=== PATIENT | female | born 1995 | race African-American/Black ===

== ENCOUNTER 2018-06-03 19:20 | Observation (INO) | payer BC ==
--- NOTE | 2018-06-03 20:44 | PDOC ---
History of Present Illness - General Chief Complaint: Pain Stated Complaint: ABD PAIN Time Seen by Provider: 06/03/18 20:10 History Source: Patient Exam Limitations: No Limitations - History of Present Illness Initial Comments: 06/03/18 20:34 Patient is a 22 year old female with no past medical problems c/o lower abd pain x 3 days. Patient states that the pain is intermittent, crampy type lasting for minutes at a time in the lower abd 09/22. She had been taking aleve for the pain with no relief. Last dose of Aleve was 8am and tylenol ES x 2 at 3 pm. LMP 05/14/18 but notice she started spotting again this morning. She does not usually have menstrual camping and usually period are regular. did not get a period in April which was due 05/02/18. No abdominal surgeries. No food contact. States had not eaten for 2 days, has small amount of food today but was nauseous. Denies fever, chills, dysuria PMD: Dr. Krueger PMHX: as above PSOCHX: neg etoh, cig, drug ALL: NKDA GENERAL/CONSTITUTIONAL: No fever or chills. No weakness. No weight change. HEAD, EYES, EARS, NOSE AND THROAT: No change in vision. No ear pain or discharge. No sore throat. CARDIOVASCULAR: No chest pain or shortness of breath. RESPIRATORY: No cough, wheezing, or hemoptysis. GASTROINTESTINAL: (+) nausea, vomiting, (-) diarrhea or constipation. No rectal bleeding. GENITOURINARY: No dysuria, frequency, or change in urination. MUSCULOSKELETAL: No joint or muscle swelling or pain. No neck or back pain. SKIN AND BREASTS: No rash or easy bruising. NEUROLOGIC: No headache, vertigo, loss of consciousness, or loss of sensation. PSYCHIATRIC: No depression or anxiety. ENDOCRINE: No increased thirst. No abnormal weight change. HEMATOLOGIC/LYMPHATIC: No anemia, easy bleeding, or history of blood clots. ALLERGIC/IMMUNOLOGIC: No hives or skin allergy. No latex allergy. GENERAL: The patient is awake, alert, and fully oriented, in moderate distress. HEAD: Normal with no signs of trauma. EYES: Pupils equal, round and reactive to light, extraocular movements intact, sclera anicteric, conjunctiva clear. ENT: Ears normal, nares patent, oropharynx clear without exudates. Moist mucous membranes. NECK: Normal range of motion, supple without lymphadenopathy, JVD, or masses. LUNGS: Breath sounds equal, clear to auscultation bilaterally. No wheezes, and no crackles. HEART: Regular rate and rhythm, normal S1 and S2 without murmur, rub. ABDOMEN: Soft, (+) tenderness in the RLQ > LLQ, normoactive bowel sounds. No guarding, no rebound. No masses. EXTREMITIES: Normal range of motion, no edema. No clubbing or cyanosis. No cords, erythema, or tenderness. NEUROLOGICAL: Cranial nerves II through XII grossly intact. Normal speech, normal gait. PSYCH: Normal mood, normal affect. SKIN: Warm, Dry, normal turgor, no rashes or lesions noted. Past History - Past Medical History Allergies/Adverse Reactions: Allergies Allergy/AdvReac Type Severity Reaction Status Date / Time No Known Allergies Allergy Verified 06/03/18 19:25 Home Medications: Ambulatory Orders Methylergonovine Maleate [Methergine -] 0.2 mg PO Q6H #3 tablet 10/18/15 COPD: No - Reproductive History (#): 3 Para: 2 Cervical CA: No Ectopic : No Polycystic Ovaries: No - Immunization History Immunization Up to Date: No - Suicide/Smoking/Psychosocial Hx Smoking History: Never smoked Have you smoked in the past 12 months: No Hx Alcohol Use: No Drug/Substance Use Hx: No Substance Use Type: None *Physical Exam - Vital Signs Last Vital Signs Temp Pulse Resp BP Pulse Ox 98.5 F 72 18 133/81 100 06/03/18 19:25 06/03/18 19:25 06/03/18 19:25 06/03/18 19:25 06/03/18 19:25 ED Treatment Course - LABORATORY CBC & Chemistry Diagram: 06/03/18 21:20 06/03/18 21:20 Medical Decision Making - Medical Decision Making 06/03/18 20:34 Patient is a 22 year old female with no past medical problems c/o lower abd pain x 3 days. Patient states that the pain is intermittent, crampy type lasting for minutes at a time in the lower abd 8/10. She had been taking aleve for the pain with no relief. Last dose of Aleve was 8am and tylenol ES x 2 at 3 pm. LMP 4/19 but notice she started spotting again this morning. She does not usually have menstrual camping and usually period are regular. States did not get a period in April which was due 05/02/18. No abdominal surgeries. DDX: Appendicitis, ruptured ovarian cysts, ovarian torsion Labs Pain meds, antinausea, IV fluids CT abdomen and pelvis with IV contrast, ultrasound rule out ovarian torsion Reassess Patient is vomiting in the emergency room. States that the right lower quadrant was very tender and made her nauseous and vomit. Patient Full Name: GARRETT GONZALES Patient Accession No: [id number] Patient : 1995 Reason for Exam: rlq pain,r/o torsion Referring Physician: Patient Name: CHRISTIAN TUCKER THIS IS A PRELIMINARY REPORT FROM [facility] ATTENDANT DATE OF SERVICE: 2018-06-03 22:45:20 IMAGES: 60 EXAM: TRANSVAGINAL ULTRASOUND US . Grayscale, color flow Doppler imaging provided. HISTORY: 22-year-old female with right lower quadrant pain. Evaluate for torsion COMPARISON: None. Findings: Cervix normal in appearance. Uterus measures 10.0 x 5.8 x 6.6 cm. Endometrial stripe thickness 6 mm. Right ovary measures 3.7 x 1.7 x 2.7 cm. Color flow and Doppler arterial/venous segment of the right ovary demonstrated. The left ovary measures 4.6 x 2.4 x 2.8 cm. Irregular cyst left ovary measuring 2.8 x 1.4 x 2.5 cm. Color flow and Doppler arterial/venous signal to the left ovary demonstrated. No free fluid noted within the cul-de-sac in the pelvis. Impression: 1. No evidence of ovarian torsion. 2. Cyst left ovary measuring 2.8 x 1.4 x 2.5 cm. Recommendation: Suggest follow-up pelvic sonography after 2-3 menstrual cycles. THIS DOCUMENT HAS BEEN ELECTRONICALLY SIGNED Rico Charles MD 06/03/2018 23:38 HTAIS Figueroa Please call [facility] [employer] Re[employer] Equipment Operator [phone]) with questions. INTERPRETING RADIOLOGIST: Patient Full Name: GARRETT GONZALES Patient Accession No: [id number] Patient : 1995 Reason for Exam: R ABD PAIN Referring Physician: CHRISTIAN TUCKER This finding was verbally communicated to Pippa Santos MD on MonJune 04 2018 00:08:10 EDT. One or more of the following dose reduction techniques were used: automated exposure control, adjustment of the mA and/or kV according to patient size, use of iterative reconstructive technique. THIS DOCUMENT HAS BEEN ELECTRONICALLY SIGNED Rico Charles MD 06/04/2018 00:15 EST M.D. Please call [facility] [employer] Equipment Operator [phone] with questions. INTERPRETING RADIOLOGIST: Rico Charles MD Electronically Signed: Jun 04, 2018 12:17AM EDT Patient Full Name: GARRETT GONZALES Patient Accession No: [id number] Patient : 1995 Reason for Exam: R ABD PAIN Referring Physician: Patient Name: CHRISTIAN TUCKER THIS IS A PRELIMINARY REPORT FROM [facility] ATTEND[facility] DATE OF SERVICE: 2018-06-03 23:24:23 IMAGES: 444 EXAM: ABDOMEN \T\ PELVIS CT WITH CONTR History: 22-year-old female with a right-sided abdominal pain. Comparison: None Procedure: CT scan abdomen and pelvis, dated June 03, 2018 . Axial images obtained followed by coronal and sagittal reconstructions. Intravenous contrast utilized, 100 mL . Findings: The liver, spleen, pancreas, adrenal glands and kidneys unremarkable. Gallbladder gallbladder fossa normal in appearance. No ureteral or bladder abnormalities noted. Rectum and perirectal space unremarkable. No large or small bowel inflammatory changes evident. The terminal ileum was normal in appearance. Proximal appendix having a transverse dimension 9.5 mm with thickening of the mucosa suggested. The appendiceal tip is unremarkable. Minimal if any periappendiceal stranding evident. There is no evidence of an appendicolith. No free intraperitoneal air or fluid identified. The abdominal aorta/branch vessel/IVC normal configuration. Suspect a 2.5 cm cyst left ovary. There is a fullness to the right ovary. Uterus is anteverted in position. There is a fullness to the lower uterine segment/cervix. Question fluid within the endocervical canal. Impression: 1. Proximal appendix having a transverse dimension 9.5 mm with thickening of the mucosa suggested. Minimal if any periappendiceal stranding identified. No extraluminal air or abscess formation identified. Findings may relate to early appendicitis. Clinical correlation advised. Recommend repeat imaging if symptoms progress. 2. Suspect 2.5 cm cyst left ovary. Slight fullness right ovary. Question fluid within the endocervical canal. Correlate with physical examination of patient's menstrual cycle. If concern with the pathology at the level of the pelvis, recommend pelvic sonography in follow-up. One or more of the following dose reduction techniques were used: automated exposure control, adjustment of the mA and/or kV according to patient size, use of iterative reconstructive technique. THIS DOCUMENT HAS BEEN ELECTRONICALLY SIGNED Rico Charles MD 06/04/2018 00:01 THAIS Lopez. Please call Imaging [employer] Re[employer] Equipment Operator [phone] with questions. INTERPRETING RADIOLOGIST: Rico Charles MD Electronically Signed: Jun 04, 2018 12:02AM EDT CT scan cannot rule out appendicitis. Patient is cell tender in the right lower quadrant. We'll admit the patient for observation pending surgical consult in the morning. *DC/Admit/Observation/Transfer Diagnosis at time of Disposition: Right lower quadrant abdominal pain - Discharge Dispostion Condition at time of disposition: Stable Decision to Admit order: Yes - Referrals Referrals: Summer Krueger MD [Primary Care Provider] - - Patient Instructions - Post Discharge Activity
[2018-06-03] MEDS ORDERED: SODIUM CHLORIDE 0.9% 500 ML INFUS.BAG IV ONE (20:47)
[2018-06-03] MEDS ORDERED: morphine CARPU-JECT 2 MG/1 ML DISP.SYRIN IVPUSH ONE (20:47)
[2018-06-03] MEDS ORDERED: ONDANSETRON 4 MG/2 ML VIAL IVPUSH ONE (20:47)
[2018-06-03 21:28] LABS: BASO % 0.4 % (0-2.0); EOS % 0.7 % (0-4.5); HEMATOCRIT 35.9 % (32.4-45.2); HEMOGLOBIN 12.4 GM/dL (10.7-15.3); LYMPH % 14.1 % (8-40); MCH 32.1 pg (25.7-33.7); MCHC 34.4 g/dl (32.0-36.0); MEAN CELL VOLUME 93.1 fl (80-96); MEAN PLT VOLUME 8.6 fl (7.5-11.1); NEUT % 73.8 % (42.8-82.8); PLATELET COUNT 250 K/MM3 (134-434); RBC 3.86 M/mm3 (3.60-5.2); RDW 12.5 % (11.6-15.6); WHITE BLOOD COUNT 7.5 K/mm3 (4.0-10.0)
[2018-06-03] MEDS ORDERED: morphine SULFATE 4 MG/ML VIAL ONE (21:42)
[2018-06-03] MEDS ORDERED: ONDANSETRON 4 MG/2 ML VIAL ONE (21:43)
[2018-06-03 21:58] LABS: ALBUMIN 3.6 g/dl (3.4-5.0); ALK PHOS 80 U/L (45-117); ANION GAP 3 MMOL/L (8-16); BILIRUBIN,TOTAL 0.3 mg/dL (0.2-1); BLOOD UREA NITROGEN 6 mg/dL (7-18); CALCIUM 9.3 mg/dL (8.5-10.1); CHLORIDE 107 mmol/L (98-107); CO2 29 mmol/L (21-32); CREATININE 0.9 mg/dL (0.55-1.3); GLUCOSE,RANDOM 99 mg/dL (74-106); POTASSIUM 3.7 mmol/L (3.5-5.1); SGOT/AST 19 U/L (15-37); SGPT/ALT 19 U/L (13-61); SODIUM 139 mmol/L (136-145); TOT PROT 7.5 g/dl (6.4-8.2)
[2018-06-03 22:31] LABS: PH,URINE 6.5 (5.0-8.0); URINE APPEARANCE CLEAR; URINE BILIRUBIN NEGATIVE (NEGATIVE); URINE COLOR YELLOW; URINE GLUCOSE (UA) NEGATIVE (NEGATIVE); URINE KETONE NEGATIVE (NEGATIVE); URINE LEUK ESTERASE NEGATIVE (NEGATIVE); URINE NITRITE NEGATIVE (NEGATIVE); URINE PROTEIN NEGATIVE (NEGATIVE); URINE UROBILINOGEN 0.2 mg/dL (0.2-1.0)
[2018-06-03 23:28] LABS: EPI CELLS 0-3 /HPF (0-5/HPF); URINE CASTS 0 /lpf (0-8); URINE RBC 0-3 /hpf (0-4); URINE WBC 0 /hpf (0-5)
--- NOTE | 2018-06-04 03:50 | HP ---
<Uli Chen - Last Filed: 06/04/18 20:27> CHIEF COMPLAINT: Abdominal Pain PCP: None HISTORY OF PRESENT ILLNESS: Pt is a 22 y/o lady with no significant past medical history who presented to [facility] c/o abdominal pain which initially commenced this past Monday (June 01 ). Pt endorses that she awoke on Monday and suddenly began to experience her abdominal pain. Pain is described as sharp, 1010 in pain severity, and radiates across her entire lower abdomen. Pt tried OTC Alleve and Tylenol which were unsuccessful in assuaging her symptoms. Pt also endorses decreased PO intake during this time as well. Pt's LMP was 05/14/2018. Pt had one episode of NBNB vomiting while in the ED. Pt denies any similar episodes in the past. PMH- None SurgHx- None Social- Denies Tobacco/Alcohol/Drugs FH- Father Arthritis. Mother DM Meds-OCPs ER course was notable for: (1) CTAP--> Proximal appendix having a transverse dimension of 9.5 cm w/ thickening of mucosa. Minimal if any stranding. Findings may suggest Early Appendicitis. (2) TVUS--> No ovarian Torsion. Cyst left ovary measuring 2.8x 1.4 x 2.5 Family History: Allergies No Known Allergies Allergy (Verified 06/03/18 19:25) HOME MEDICATIONS: Home Medications Medication Instructions Recorded Methylergonovine Maleate 0.2 mg PO Q6H #3 tablet 10/18/15 [Methergine -] REVIEW OF SYSTEMS CONSTITUTIONAL: Absent: fever, chills, diaphoresis, generalized weakness, malaise, loss of appetite, weight change HEENT: Absent: rhinorrhea, nasal congestion, throat pain, throat swelling, difficulty swallowing, mouth swelling, ear pain, eye pain, visual changes CARDIOVASCULAR: Absent: chest pain, syncope, palpitations, irregular heart rate, lightheadedness , peripheral edema RESPIRATORY: Absent: cough, shortness of breath, dyspnea with exertion, orthopnea, wheezing, stridor, hemoptysis GASTROINTESTINAL: PRESENT: abdominal pain, nausea, vomiting GENITOURINARY: Absent: dysuria, frequency, urgency, hesitancy, hematuria, flank pain, genital pain MUSCULOSKELETAL: Absent: myalgia, arthralgia, joint swelling, back pain, neck pain SKIN: Absent: rash, itching, pallor HEMATOLOGIC/IMMUNOLOGIC: Absent: easy bleeding, easy bruising, lymphadenopathy, frequent infections ENDOCRINE: Absent: unexplained weight gain, unexplained weight loss, heat intolerance, cold intolerance NEUROLOGIC: Absent: headache, focal weakness or paresthesias, dizziness, unsteady gait, seizure, mental status changes, bladder or bowel incontinence PSYCHIATRIC: Absent: anxiety, depression, suicidal or homicidal ideation, hallucinations. PHYSICAL EXAMINATION Vital Signs - 24 hr 06/03/18 06/04/18 19:25 03:06 Temperature 98.5 F 98.4 F Pulse Rate 72 Pulse Rate [ 67 Left Radial] Respiratory 18 Rate Blood Pressure 133/81 Blood Pressure 124/75 [Left Arm] O2 Sat by Pulse 100 99 Oximetry (%) GENERAL: AAOX3 NAD HEAD: Normal with no signs of trauma. EYES: EOMI Sclera Clear EARS, NOSE, THROAT: MMM NECK: Normal range of motion, supple without lymphadenopathy, JVD, or masses. LUNGS: CTAB HEART: RRR ABDOMEN: Neg Benson's, Rovsing's, or Mcburney's Signs. No guarding or rigidity. No rebound tenderness appreciated MUSCULOSKELETAL: FROM UPPER EXTREMITIES: 2+ pulses, warm, well-perfused. No cyanosis. No clubbing. No peripheral edema. LOWER EXTREMITIES: No CCE NEUROLOGICAL: Cranial nerves II-XII intact. Normal speech. Normal gait. PSYCHIATRIC: Cooperative. Good eye contact. Appropriate mood and affect. SKIN: Warm, dry, normal turgor, no rashes or lesions noted, normal capillary refill. Laboratory Results - last 24 hr 06/03/18 06/03/18 06/03/18 21:20 21:20 21:20 WBC 7.5 RBC 3.86 Hgb 12.4 Hct 35.9 MCV 93.1 MCH 32.1 MCHC 34.4 RDW 12.5 Plt Count 250 MPV 8.6 Absolute Neuts (auto) 5.5 Neutrophils % 73.8 Lymphocytes % 14.1 D Monocytes % 11.0 H D Eosinophils % 0.7 D Basophils % 0.4 Nucleated RBC % 0 Sodium 139 Potassium 3.7 Chloride 107 Carbon Dioxide 29 Anion Gap 3 L BUN 6 L Creatinine 0.9 Creat Clearance w eGFR 76.92 Random Glucose 99 Calcium 9.3 Total Bilirubin 0.3 AST 19 ALT 19 Alkaline Phosphatase 80 Total Protein 7.5 Albumin 3.6 Lipase 211 Beta HCG, Quant < 1.0 Urine Color Urine Appearance Urine pH Ur Specific Austin Urine Protein Urine Glucose (UA) Urine Ketones Urine Blood Urine Nitrite Urine Bilirubin Urine Urobilinogen Ur Leukocyte Esterase Urine WBC (Auto) Urine RBC (Auto) Urine Casts (Auto) U Epithel Cells (Auto) Urine Bacteria (Auto) 06/03/18 22:17 WBC RBC Hgb Hct MCV MCH MCHC RDW Plt Count MPV Absolute Neuts (auto) Neutrophils % Lymphocytes % Monocytes % Eosinophils % Basophils % Nucleated RBC % Sodium Potassium Chloride Carbon Dioxide Anion Gap BUN Creatinine Creat Clearance w eGFR Random Glucose Calcium Total Bilirubin AST ALT Alkaline Phosphatase Total Protein Albumin Lipase Beta HCG, Quant Urine Color Yellow Urine Appearance Clear Urine pH 6.5 Ur Specific [place] 1.007 L Urine Protein Negative Urine Glucose (UA) Negative Urine Ketones Negative Urine Blood Trace Urine Nitrite Negative Urine Bilirubin Negative Urine Urobilinogen 0.2 Ur Leukocyte Esterase Negative Urine WBC (Auto) 0 Urine RBC (Auto) 0-3 Urine Casts (Auto) 0 U Epithel Cells (Auto) 0-3 Urine Bacteria (Auto) None ASSESSMENT/PLAN: Pt is a 22 y/o lady with no significant past medical history who presented to [facility] c/o abdominal pain which initially commenced this past Monday (June 01 ). #Abdominal Pain 2/2 possible Appendicitis -CTAP cannot r/o Appendicitis. -Tylenol to not exceed 4 Grams in 24 hours. Morphine 2 mg Q6H. -NPO, Type and Screen, PT/INR -Surgery Consult #FEN LR@100cc/hr Monitor Electrolytes NPO #DVT ppx: SCDs, EAM #Dispo: Obs Visit type - Emergency Visit Emergency Visit: Yes ED Registration Date: 06/04/18 Care time: The patient presented to the Emergency Department on the above date and was hospitalized for further evaluation of their emergent condition. - New Patient This patient is new to me today: Yes Date on this admission: 06/04/18 - Critical Care Critical Care patient: No <Norberto De - Last Filed: 06/04/18 22:16> Seen and examined; agree with above aside from what is supplemented in my own documentation. Repeated all juan parts of exam, supervised all vital parts of patient care.
[2018-06-04] MEDS ORDERED: ACETAMINOPHEN 325 MG TABLET (FP) PO PRN ×2 (04:42→05:27)
--- NOTE | 2018-06-04 04:46 | PN ---
Teaching Attending Note Name of Resident: Uli Chen ATTENDING PHYSICIAN STATEMENT I saw and evaluated the patient. I reviewed the resident's note and discussed the case with the resident. I agree with the resident's findings and plan as documented. SUBJECTIVE: Seen and examined; please see resident note for further historical details. Briefly, this is a 22 y/o female on no Rx medications with no ongoing medical problems who presents with several days of worsening lower abdominal pain found to have possible appendicitis. She is afebrile and hemodynamically stable. The preliminary read on her CT shows proximal appendix with a transverse dimension of 9.5mm with mucosal wall thickening and minimal to no periappendiceal stranding; radiology felt that these findings could coorelate to early appendicitis. Incidental finding of 2.5cm L-ovary cyst with slight fullness to the R ovary; recommended coorlation with the patient's menstrual cycle and TVU if warranted. TVU negative for torsion with final report pending. 10 sys ROS done and negative aside from HPI PMH, PSH, FH, SH reviewed Medication list reviewed Home Medications Medication Instructions Recorded Methylergonovine Maleate 0.2 mg PO Q6H #3 tablet 10/18/15 [Methergine -] OBJECTIVE: VS, labs, imaging negative NAD, AAO, resting comfortably in bed RRR s1/2 no mgr Lungs CTAB, w/ sym exp Slight tenderness lower abd with no distention, rebound, or guarding. +BS CN2-12 wnl, no fnd Normal mood, appropriate behavior Prelim imaging discussed in HPI; personally reviewed ASSESSMENT AND PLAN: Patient presents with abdominal pain found to have possible early appendicitis. 1) ?Early Appendicitis -Placing on the medicine service with surgical consult -NPO, IVF, pain and nausea control -Followup final report CT; defer further diagnostics to surgery. -Empiric abx with lq/flagyl for now 2) Overweight (BMI 27) -Testing Engineer prior to DC Full Code
[2018-06-04] MEDS: LACTATED RINGERS SOLUTION 1,000 ML/1,000 ML INFUS.BAG IV SCH ×2 (05:34→18:23)
[2018-06-04 05:59] LABS: BASO % 0.4 % (0-2.0); HEMATOCRIT 34.6 % (32.4-45.2); HEMOGLOBIN 11.9 GM/dL (10.7-15.3); LYMPH % 28.6 % (8-40); MCH 32.1 pg (25.7-33.7); MCHC 34.4 g/dl (32.0-36.0); MEAN CELL VOLUME 93.3 fl (80-96); MEAN PLT VOLUME 9.4 fl (7.5-11.1); MONO % 11.7 % (3.8-10.2); NEUT % 58.3 % (42.8-82.8); PLATELET COUNT 269 K/MM3 (134-434); RBC 3.71 M/mm3 (3.60-5.2); RDW 12.3 % (11.6-15.6); WHITE BLOOD COUNT 6.4 K/mm3 (4.0-10.0)
[2018-06-04 06:18] LABS: INR 1.08 (0.83-1.09); PROTHROMBIN TIME (PATIENT) 12.8 SEC (9.7-13.0)
[2018-06-04 06:20] LABS: ACTIVATED PTT 34.1 SECONDS (25.2-36.5)
[2018-06-04 06:34] VITALS: BMI 28.1
[2018-06-04 06:35] LABS: ALBUMIN 3.3 g/dl (3.4-5.0); ALK PHOS 68 U/L (45-117); ANION GAP 7 MMOL/L (8-16); BILIRUBIN,TOTAL 0.4 mg/dL (0.2-1); BLOOD UREA NITROGEN 5 mg/dL (7-18); CALCIUM 8.3 mg/dL (8.5-10.1); CHLORIDE 109 mmol/L (98-107); CO2 26 mmol/L (21-32); CREATININE 0.8 mg/dL (0.55-1.3); GLUCOSE,RANDOM 120 mg/dL (74-106); MAGNESIUM 1.9 mg/dL (1.8-2.4); PHOSPHOROUS 2.8 mg/dL (2.5-4.9); SGOT/AST 35 U/L (15-37); SGPT/ALT 16 U/L (13-61); SODIUM 141 mmol/L (136-145); TOT PROT 6.6 g/dl (6.4-8.2)
--- NOTE | 2018-06-04 08:41 | PN ---
Teaching Attending Note Name of Resident: Marina Rendon ATTENDING PHYSICIAN STATEMENT I saw and evaluated the patient. I reviewed the resident's note and discussed the case with the resident. I agree with the resident's findings and plan as documented. SUBJECTIVE: OBJECTIVE: Vital Signs Period Temp Pulse Resp BP Sys/Peraza Pulse Ox Last 24 Hr 97.5 F-98.5 F 67-73 18-20 124-133/70-81 99-100 Young F not in distress c/o mild pian HEENT: Normal with no signs of trauma, MM moist no anemia NECK: Normal range of motion, supple without lymphadenopathy, JVD, or masses. CHEST: CTA B/L CVS: S1S2R ABDOMEN:Mild RT LQ tenderness No guarding or rigidity. No rebound tenderness appreciated EXTREMITIES: 2+ pulses, warm, well-perfused. No cyanosis. No clubbing. No peripheral edema. NEUROLOGICAL:AOX3 non focal Cranial nerves II-XII intact. LABS: CBC, BMP 06/04/18 04:46 06/04/18 04:46 Active Medications Active Medications Acetaminophen (Tylenol -) 650 mg PO Q6H PRN PRN Reason: PAIN LEVEL 4 - 6 Lactated Ringer's (Lactated Ringers Solution) 1,000 ml in 1,000 mls @ 100 mls/ hr IV ASDIR TATA Last Admin: 06/04/18 05:34 Dose: 100 mls/hr Morphine Sulfate (Morphine Sulfate) 2 mg IVPUSH Q6H PRN PRN Reason: PAIN LEVEL 7 - 10 ASSESSMENT AND PLAN:22 y/o female on no Rx medications with no ongoing medical problems who presents with several days of worsening lower abdominal pain found to have possible appendicitis. She is afebrile and hemodynamically stable. The preliminary read on her CT shows proximal appendix with a transverse dimension of 9.5mm with mucosal wall thickening and minimal to no periappendiceal stranding; radiology felt that these findings could coorelate to early appendicitis. Problem List - Problems (1) Right lower quadrant abdominal pain Assessment/Plan: CT ? appendicitis evaluated by Surgery recommended observe no abx, advance Po and observe. Code(s): R10.31 - RIGHT LOWER QUADRANT PAIN
[2018-06-04] MEDS: morphine SULFATE 4 MG/ML VIAL IVPUSH PRN ×2 (09:21→18:20)
--- NOTE | 2018-06-04 10:28 | CONSULT ---
- Consultation REQUESTING PROVIDER: Xochitl Chen MD CONSULT REQUEST: We have been asked to surgically evaluate this patient for abdominal pain. PCP:Mary Montelongo MD HISTORY OF PRESENT ILLNESS: [place] who is a 22 y/o female who presented to [facility] ED c/o abdominal pain which initially commenced this past Monday (June 01). Pt states that she awoke on Monday and suddenly began to experience her abdominal pain. Pain is described as sharp, 1010 in pain severity, and radiates across her entire lower abdomen; it was initially generalized but then ?? loacalized to her RLQ. Pt tried OTC analgesics which were unsuccessful in resolving her symptoms. Pt also states decreased PO intake during this time as well. Pt's LMP was 05/14/2018. Pt had one episode of NBNB vomiting while in the ED. Pt denies any similar episodes in the past. 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 PMHx: none PSHx: none Allergies Allergy/AdvReac Type Severity Reaction Status Date / Time No Known Allergies Allergy Verified 06/03/18 19:25 REVIEW OF SYSTEMS: CONSTITUTIONAL: Absent: fever, chills, diaphoresis, generalized weakness, malaise, loss of appetite, weight change CARDIOVASCULAR: Absent: chest pain, syncope, palpitations, irregular heart rate, lightheadedness , peripheral edema RESPIRATORY: Absent: cough, shortness of breath, dyspnea with exertion, wheezing, stridor, hemoptysis GASTROINTESTINAL: Absent: abdominal pain, abdominal distension, nausea, vomiting, diarrhea, constipation, melena, hematochezia GENITOURINARY: Absent: dysuria, frequency, urgency, hesitancy, hematuria, flank pain, genital pain Present: dysmenorrhea MUSCULOSKELETAL: Absent: myalgia, arthralgia, joint swelling, back pain, neck pain SKIN: Absent: rash, itching, pallor HEMATOLOGIC/IMMUNOLOGIC: Absent: easy bleeding, easy bruising, lymphadenopathy NEUROLOGIC: Absent: headache, focal weakness, paresthesias, dizziness, unsteady gait, seizure, mental status changes, bladder or bowel incontinence PSYCHIATRIC: Absent: anxiety, depression, suicidal or homicidal ideation, hallucinations. PHYSICAL EXAM: GENERAL: Awake, alert, and fully oriented, in no acute distress; in bed sleeping but arousable.. HEAD: Normal with no signs of trauma. EYES: sclera anicteric, conjunctiva clear. NECK: Normal ROM, supple without lymphadenopathy, JVD, or masses. ABDOMEN: Soft, nontender, not distended, normoactive bowel sounds, no guarding, no rebound, no masses. No organomegaly. No psoas/obturator/Rovsings signs; no hernias MUSCULOSKELETAL: Normal ROM at all joints. No bony deformities or tenderness. No CVA tenderness. UPPER EXTREMITIES: 2+ pulses, warm, well-perfused. No cyanosis. Cap refill <2 seconds. No peripheral edema. LOWER EXTREMITIES: 2+ pulses, warm, well-perfused. No calf tenderness. No peripheral edema. NEUROLOGICAL: Normal speech, gait not observed. PSYCH: Cooperative. Good eye contact. Appropriate mood and affect. SKIN: Warm, dry, normal turgor, no rashes or lesions noted. Vital Signs Temperature 97.5 F L 06/04/18 03:42 Pulse Rate 73 06/04/18 03:42 Respiratory Rate 18 06/04/18 05:55 Blood Pressure 127/70 06/04/18 03:42 O2 Sat by Pulse Oximetry (%) 99 06/04/18 05:55 Lab Results WBC 6.4 K/mm3 (4.0-10.0) 06/04/18 04:46 RBC 3.71 M/mm3 (3.60-5.2) 06/04/18 04:46 Hgb 11.9 GM/dL (10.7-15.3) 06/04/18 04:46 Hct 34.6 % (32.4-45.2) 06/04/18 04:46 MCV 93.3 fl (80-96) 06/04/18 04:46 MCHC 34.4 g/dl (32.0-36.0) 06/04/18 04:46 RDW 12.3 % (11.6-15.6) 06/04/18 04:46 Plt Count 269 K/MM3 (134-434) 06/04/18 04:46 Sodium 141 mmol/L (136-145) 06/04/18 04:46 Potassium 4.0 mmol/L (3.5-5.1) 06/04/18 04:46 Chloride 109 mmol/L (98-107) H 06/04/18 04:46 Carbon Dioxide 26 mmol/L (21-32) 06/04/18 04:46 Anion Gap 7 MMOL/L (8-16) L 06/04/18 04:46 BUN 5 mg/dL (7-18) L 06/04/18 04:46 Creatinine 0.8 mg/dL (0.55-1.3) 06/04/18 04:46 Random Glucose 120 mg/dL (74-106) H 06/04/18 04:46 Calcium 8.3 mg/dL (8.5-10.1) L 06/04/18 04:46 Blood Type O POSITIVE 06/04/18 07:35 Antibody Screen Negative 06/04/18 07:35 INR 1.08 (0.83-1.09) 06/04/18 04:46 CT scan a/p reviewed and images. IMP: doubt appendicitis based on clinical and radiological evidence. PLAN: Suggest advance diet as tolerated and observe; will f/u. Humza Romero MD FACS
[2018-06-04] MEDS ORDERED: PT OWN MED DRAWER 7, Y5N ONE (22:32)
[2018-06-05] MEDS ORDERED: MORPHINE SULFATE 2 MG/ML VIAL IVPUSH PRN (02:10)
[2018-06-05] MEDS: LACTATED RINGERS SOLUTION 1,000 ML/1,000 ML INFUS.BAG IV SCH (04:05)
[2018-06-05 07:44] LABS: ANION GAP 6 MMOL/L (8-16); BLOOD UREA NITROGEN 3 mg/dL (7-18); CALCIUM 8.9 mg/dL (8.5-10.1); CHLORIDE 107 mmol/L (98-107); CO2 29 mmol/L (21-32); CREATININE 0.7 mg/dL (0.55-1.3); GLUCOSE,RANDOM 80 mg/dL (74-106); POTASSIUM 4.1 mmol/L (3.5-5.1); SODIUM 141 mmol/L (136-145)
[2018-06-05 07:45] LABS: BASO % 0.5 % (0-2.0); EOS % 1.4 % (0-4.5); HEMATOCRIT 35.4 % (32.4-45.2); LYMPH % 34.6 % (8-40); MCH 31.6 pg (25.7-33.7); MCHC 33.9 g/dl (32.0-36.0); MEAN CELL VOLUME 93.3 fl (80-96); MEAN PLT VOLUME 8.7 fl (7.5-11.1); MONO % 9.9 % (3.8-10.2); NEUT % 53.6 % (42.8-82.8); PLATELET COUNT 254 K/MM3 (134-434); RBC 3.79 M/mm3 (3.60-5.2); RDW 12.1 % (11.6-15.6); WHITE BLOOD COUNT 5.3 K/mm3 (4.0-10.0)
--- NOTE | 2018-06-05 10:17 | PN ---
Progress Note (short form) - Note Progress Note: 22 y/o female who presented to [facility] ED c/o intermittent abdominal pain since June 01, 2018. CT of abd showed a ? distal thickening of distal appendix and can't r/o acute early appendicitis. Transvaginal U/S left ovarian cyst. Since admit to hospital, abd pain has completely resolved. She is tolerating a regular diet. Passing flatus and stooling. Spontaneously voiding. Ambulating unassisted. Denies n/v/f/c, CP, palpitations, SOB, HEREDIA, vaginal discharge or hematuria. Last Vital Signs Temp Pulse Resp BP Pulse Ox 98.1 F 72 20 119/60 99 06/05/18 06:47 06/05/18 06:47 06/05/18 06:47 06/05/18 06:47 06/04/18 21:00 CBC, BMP 06/05/18 06:40 06/05/18 06:40 Gen: alert. nad. ABD: soft. +bs in a ll quadrants. nt. nd. LE: soft. nt bilat Problem List - Problems (1) Right lower quadrant abdominal pain Assessment/Plan: 22 yo female admitted w/ RLQ abd pain. Since admit to hospital her pain has resolved. No leukocytosis. Afebrile. Tolerating PO diet. Voiding/stooling without difficulty. No surgical intervention. Can be discharged home from surgery standpoint. On behalf of Dr. Romero, thank you for the opportunity to participate in your patient's care. Code(s): R10.31 - RIGHT LOWER QUADRANT PAIN
[2018-06-05 11:07] VITALS: BP 91/60; PULSE 66; TEMP 98.4
--- NOTE | 2018-06-05 11:08 | DS ---
Physical Exam: SUBJECTIVE: Patient seen and examined, is complaining of mild pain in RLQ. OBJECTIVE: Vital Signs Period Temp Pulse Resp BP Sys/Peraza Pulse Ox Last 24 Hr 98 F-98.6 F 66-76 16-20 111-132/60-78 99 PHYSICAL EXAM GENERAL: The patient is awake, alert, and fully oriented, in no acute distress. HEAD: Normal with no signs of trauma. EYES: Extraocular movements intact, sclera anicteric. ENT: Oropharynx clear without exudates, moist mucous membranes. NECK: Trachea midline, full range of motion, supple. LUNGS: Breath sounds equal, clear to auscultation bilaterally, no wheezes, no crackles, no accessory muscle use. HEART: Regular rate and rhythm, S1, S2 without murmur, rub or gallop. ABDOMEN: Soft, mild tenderness in RLQ, nondistended, normoactive bowel sounds, no guarding, no rebound. NEUROLOGICAL: Non focal. Normal speech, gait not observed. PSYCH: Normal mood, normal affect. SKIN: Warm, dry, normal turgor, no rashes. LABS Laboratory Results - last 24 hr 06/05/18 06/05/18 06:40 06:40 WBC 5.3 RBC 3.79 Hgb 12.0 Hct 35.4 MCV 93.3 MCH 31.6 MCHC 33.9 RDW 12.1 Plt Count 254 MPV 8.7 Absolute Neuts (auto) 2.8 Neutrophils % 53.6 Lymphocytes % 34.6 D Monocytes % 9.9 Eosinophils % 1.4 Basophils % 0.5 Nucleated RBC % 0 Sodium 141 Potassium 4.1 Chloride 107 Carbon Dioxide 29 Anion Gap 6 L BUN 3 L Creatinine 0.7 Creat Clearance w eGFR 102.81 Random Glucose 80 Calcium 8.9 HOSPITAL COURSE: Pt is a 22 y/o lady with no significant past medical history who presented to the hospital complaining of abdominal pain which initially commenced 3 days ago. The pt endorses that it started suddenly. Pain is described as sharp, 1010 in pain severity, and radiates across her entire lower abdomen. Pt tried OTC Alleve and Tylenol which were unsuccessful in assuaging her symptoms. Pt also endorses decreased PO intake during this time as well. Pt's LMP was 05/14/2018. Pt had one episode of NBNB vomiting while in the ED. Pt denies any similar episodes in the past. During the hospitalization the patient had CT abdomen done that couldn't r/o appendicitis and was positive for small left sided ovarian cyst 1.9 cm. Transvaginal US with no acute pathology, pregnanct test negative. She continued to have abdominal pain in RLQ but improved. Her nausea resolved and she tolerated diet well. Surgery was consulted and appendicitis was ruled out. The patient was discharged home with recommendation to f/u with her PCP, OBGYN and continue to eat healthy, well balanced diet high in fiber. We also recommended OTC pain medications. Date of Admission:06/04/18 Date of Discharge: 06/05/18 Minutes to complete discharge: 35 Discharge Summary Reason For Visit: LOWER QUADRANT ABDOMINAL PAIN Current Active Problems Right lower quadrant abdominal pain (Acute) Condition: Good - Instructions Diet, Activity, Other Instructions: You stayed in the hospital for abdominal pain. We excluded acute, infectious process. You were found to have small 1.9 cm ovarian cyst on left side. Take over the counter pain medications if needed. Please visit your primary care physician in a week and follow up with your OBGYN. If you have sever abdominal pain, nausea, vomiting, fever, chills, or worsening of any of your symptoms, come back to Emergency room as soon as possible. Referrals: Summer Krueger MD [Primary Care Provider] - 1 Week Disposition: HOME Problem List - Problems (1) Right lower quadrant abdominal pain Code(s): R10.31 - RIGHT LOWER QUADRANT PAIN This patient is new to me today: No Emergency Visit: Yes ED Registration Date: 06/04/18 Care time: The patient presented to the Emergency Department on the above date and was hospitalized for further evaluation of their emergent condition. Critical Care patient: No - Discharge Referral Referred to [facility] Med [facility].C.: No
--- NOTE | 2018-06-05 13:27 | PN ---
Teaching Attending Note Name of Resident: Marina Rendon ATTENDING PHYSICIAN STATEMENT I saw and evaluated the patient. I reviewed the resident's note and discussed the case with the resident. I agree with the resident's findings and plan as documented. SUBJECTIVE: still c/o pain tolerating PO remained afebrile, passing flatus last BM this am no dyuria OBJECTIVE: Vital Signs Temperature 98.4 F 06/05/18 08:05 Pulse Rate 66 06/05/18 08:05 Respiratory Rate 18 06/05/18 08:05 Blood Pressure 91/60 06/05/18 08:05 O2 Sat by Pulse Oximetry (%) 99 06/04/18 21:00 Young F not in distress c/o mild pian HEENT: Normal with no signs of trauma, MM moist no anemia NECK: Normal range of motion, supple without lymphadenopathy, JVD, or masses. CHEST: CTA B/L CVS: S1S2R ABDOMEN:Mild RT LQ tenderness No guarding or rigidity. No rebound tenderness appreciated EXTREMITIES: 2+ pulses, warm, well-perfused. No cyanosis. No clubbing. No peripheral edema. NEUROLOGICAL:AOX3 non focal Cranial nerves II-XII intact. l ASSESSMENT AND PLAN:22 y/o female on no Rx medications with no ongoing medical problems who presents with several days of worsening lower abdominal pain found to have possible appendicitis. She is afebrile and hemodynamically stable. 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 Discussed with the team. Problem List - Problems (1) Right lower quadrant abdominal pain Assessment/Plan: CT ? appendicitis evaluated by Surgery recommended observe no abx, advance Po clear to Dc home. Code(s): R10.31 - RIGHT LOWER QUADRANT PAIN Problem List - Problems (1) Right lower quadrant abdominal pain Code(s): R10.31 - RIGHT LOWER QUADRANT PAIN
== END 2018-06-05 13:48 | disposition home or self-care (01) ==
LOC: JER 19:20 → JERBED 06-04 03:42 → J8W 06-04 06:28
PROVIDERS: ADMIT Internal Medicine; ATTEND Internal Medicine
PROC: 3E033NZ Introduction of Analgesics, Hypnotics, Sedatives into Peripheral Vein, Percutaneous Approach (ICD-10-PCS; principal; 2018-06-04)
PROC: 3E0337Z Introduction of Electrolytic and Water Balance Substance into Peripheral Vein, Percutaneous Approach (ICD-10-PCS; 2018-06-04)
PROC: 3E033GC Introduction of Other Therapeutic Substance into Peripheral Vein, Percutaneous Approach (ICD-10-PCS; 2018-06-04)
DX: R10.31 Right lower quadrant pain (principal); E66.3 Overweight; Z68.28 Body mass index [BMI] 28.0-28.9, adult
CPT/HCPCS: 36415; 74177-TC; 76830-TC; 76856-TC; 80048; 80053; 81003; 83690; 83735; 84100; 84702; 85025; 85610; 85730; 86850; 86900; 86901; 99284-25; G0378

== ENCOUNTER → 2023-03-20 | Emergency (ER) | payer BC, OTHER ==
[2023-03-20 08:55] VITALS: BP 125/78; PULSE 87; RESP 18; TEMP 98; BMI 30.4
== END | disposition left against medical advice (07) ==
LOC: JER 08:31
DX: O98.519 Other viral diseases complicating pregnancy, unspecified trimester (principal); U07.1 COVID-19; O26.891 Other specified pregnancy related conditions, first trimester; R50.9 Fever, unspecified; R09.81 Nasal congestion; R35.0 Frequency of micturition
CPT/HCPCS: 0241U-QW; 76815; 99284-25